=== PATIENT | female | born 1985 | race Caucasian/White ===

== ENCOUNTER → 2020-04-20 | Outpatient (CLI) | payer BC ==
--- NOTE | 2020-05-03 08:25 | MR ---
EXAMINATION TYPE: MR brain wo/w con DATE OF EXAM: 04/20/2020 COMPARISON: Prior outside MRI brain May 27, 2016 HISTORY: MS TECHNIQUE: Multiplanar, multisequence images of the brain and brainstem is performed without and with IV contras t, utilizing 6.5 mL intravenous Gadavist gadolinium contrast is administered intravenously. Demyelin ating disease protocol with additional Sagittal Flair sequence performed. FINDINGS: T2 Lesions Present : Yes Approximate Number of Lesions: Approximately 50 Locations Identified : Scattered without infratentorial involvement Size of Reference Lesion(s): 1. 12 x 6 x 12 mm on axial image 23 and sagittal image 15 left frontal lesion new from prior 2 12 x 8 x 9 mm right frontal lesion on axial image 20 and sagittal image 27 stable from prior. Enhancing Lesion(s) Present: Yes, roughly 6-8 enhancing lesions, largest 3 to 4 mm posterior high lef t frontal lobe axial image 22 T1 Hypointense Lesion(s) Present: Yes Change from Prior: Increased Diffusion weighted images demonstrate areas of T2 shine through corresponding to white matter lesions . There is no worrisome extra-axial fluid collection. The ventricular system and cisternal spaces a re normal in size and appearance. The brain volume is age appropriate. Midline structures demonstrate normal morphology. The craniocervical junction appears within normal limits. The dural venous sinuses appear patent. The visualized sinuses are clear and the globes are intact. IMPRESSION: Moderate to borderline severe white matter changes consistent with known multiple scleros is. Interval progression from outside 2017 MRI in the number of lesions. Enhancing or active lesions are noted.
== END | disposition home or self-care (01) ==
LOC: RADMRIMAIN 09:42
PROVIDERS: ATTEND Psychiatry & Neurology Neurology
DX: G93.9 Disorder of brain, unspecified (principal); G35 Multiple sclerosis
CPT/HCPCS: 70553; A9585

== ENCOUNTER → 2020-04-27 | Outpatient (CLI) | payer BC ==
--- NOTE | 2020-05-16 18:42 | MR ---
EXAMINATION TYPE: MR cspine/tspine wo/w con DATE OF EXAM: 04/27/2020 COMPARISON: Outside MRI cervical and thoracic spine July 13, 2014 HISTORY: MS TECHNIQUE: Multiplanar, multisequence imaging of cervical and thoracic spine are performed without an d with contrast, demyelinating disease protocol. Patient injected with 7 cc of gadolinium for the pardeep dy. FINDINGS: C-SPINE: FINDINGS: Sagittal images of the cervical spine show the craniocervical junction to remain within nor mal limits. The cervical and upper thoracic spinal cord remains normal in course, caliber, and signa l. Vertebral alignment is stable and satisfactory. The vertebral body and intravertebral disk heigh ts are normal. Small posterior disc herniation mildly effaces the anterior thecal sac at C5-C6 level on sagittal image 8. The bone marrow signal intensity is within normal limits. No suspicious postcont rast enhancement. Axial images shows a right paracentral disc protrusion mildly effacing the anterior thecal sac axial image 20.. Bilateral neural foramina. Other cervical levels within normal limits IMPRESSION: Small disc herniation C5-C6 level redemonstrated. No MRI evidence for demyelinating disea se involvement in the cervical spinal cord. No significant change from prior outside study. T-SPINE: Spinal cord shows we demonstrates normal caliber and course in the thoracic spine. Subtle lesion of increased signal T3 level sagittal image 8 inferiorly identified corresponding to slight increased si gnal left aspect axial image 12 appears less prominent prior study axial image 31. Small area of invo lvement right T5 level axial image 7 appears similar to prior study axial image 37. Last lesion infer ior T6 level left of midline axial image 3 redemonstrated. No definitive new T2 hyperintense lesions. No enhancing lesions are identified. Vertebral body heights and alignment remain satisfactory. Disc space heights maintained. No posterior disc herniations. Review of the axial images shows no significant spinal canal stenosis or neural foraminal narrowing a t any thoracic level. IMPRESSION: Stable 3 subtle lesions in the upper to midthoracic spine as detailed above. No new or e nhancing lesions are evident.
== END | disposition home or self-care (01) ==
LOC: RADMRIMAIN 09:18
PROVIDERS: ATTEND Psychiatry & Neurology Neurology
DX: M50.222 Other cervical disc displacement at C5-C6 level (principal); G95.9 Disease of spinal cord, unspecified; G35 Multiple sclerosis
CPT/HCPCS: 72156; 72157; A9585

== ENCOUNTER → 2021-10-11 | Outpatient (CLI) | payer BC ==
--- NOTE | 2021-10-12 01:54 | MR ---
EXAMINATION TYPE: MR brain wo/w con DATE OF EXAM: 10/11/2021 COMPARISON: 04/20/2020 HISTORY: MS CONTRAST: Standard multiplanar, multisequence MRI departmental protocol images were obtained without contrast a nd with 6 mL intravenous Gadavist gadolinium contrast. Diffusion images show no evidence of acute infarct. Ventricles are of normal size. There is no mass e ffect or midline shift. No sign of intracranial hemorrhage. There are multiple white matter high sign al foci around the lateral ventricles that measure up to 1 cm. Total number is approximately 20 and t here is also involvement of the corpus callosum. This is consistent with demyelinating disease. Sella turcica appears normal. No evidence of orbital mass. The brainstem is intact. Cerebellum is intact. The contrast images show no pathologic enhancement. Th ere is normal enhancement of the venous sinuses. IMPRESSION: Numerous white matter nonenhancing lesions consistent with demyelinating disease. No evidence of any significant new disease compared to old exam.
== END | disposition home or self-care (01) ==
LOC: RADMRIMAIN 18:56
PROVIDERS: ATTEND Psychiatry & Neurology Neurology
DX: R90.82 White matter disease, unspecified (principal); G35 Multiple sclerosis
CPT/HCPCS: 70553; A9585

== ENCOUNTER → 2024-01-12 | Outpatient (CLI) | payer BC ==
[2024-01-12 16:33] LABS: Chol/HDL Ratio 4.02 Ratio; LDL Cholesterol,Calculated 152.9 mg/dL (0.0-131.0)
--- NOTE | 2024-01-13 08:46 | MR ---
EXAMINATION TYPE: MR brain/cspine wo/w DATE OF EXAM: 01/12/2024 3:45 PM CLINICAL INDICATION: Female, 38 years old with history of G35 MULTIPLE SCLEROSIS; [facility], COMPARISON: 10/11/2021, 04/27/2022. TECHNIQUE: Multi planar, multi sequence imaging was performed through the brain including: T1, T2, Inversion rec overy, Diffusion weighted imaging, and gradient echo imaging. No gadolinium was given. Multi planar, multi sequence imaging was performed utilizing: T1-weighted, T2-weighted, and turbo inv ersion recovery imaging of the cervical spine. IV Contrast: cc 6 cc Gadavist FINDINGS: The pearson-white junctions, ventricular system, basal cisterns appear unremarkable. Scattered white m atter changes which are similar to prior where there is orthogonal morphology to the lateral ventricl es compatible with multiple sclerosis.. Midline structures show no abnormality. Diffusion-weighted im aging shows no evidence of restricted diffusion. The susceptibility weighted images do not reveal any evidence for micro-hemorrhage. The bone marrow signal is within normal limits. Paranasal sinuses and mastoid air cells: No significant paranasal sinus disease. Visualized orbits: Orbital contents are intact. Alignment: The cervical vertebral bodies have preserved heights. Alignment is within normal limits gi jesus manuel patient positioning. Bones: Bone signal is within normal limits. No abnormal bone marrow edema on inversion recovery seque nces. Cord: The spinal cord is unremarkable with regards to their signal intensity and morphology. No evide nce for abnormal postcontrast enhancement. Discs: Intervertebral disc signal is maintained. C2-C3: No significant disc pathology. The spinal canal is patent. No neural foraminal stenosis. C3-C4: No significant disc pathology. The spinal canal is patent. No neural foraminal stenosis. C4-C5: No significant disc pathology. The spinal canal is patent. No neural foraminal stenosis. C5-C6: No significant disc pathology. The spinal canal is patent. Bilateral facet and uncovertebral joint arthropathy are present with mild bilateral neural foraminal stenosis. C6-C7: No significant disc pathology. The spinal canal is patent. No neural foraminal stenosis. C7-T1: No significant disc pathology. The spinal canal is patent. No neural foraminal stenosis. Other: None. IMPRESSION: 1. No evidence for active demyelination. White matter changes compatible with multiple sclerosis mor phology without significant change from prior 2021. No abnormal postcontrast enhancement or restricte d diffusion. 2. No evidence for disc herniation or significant spinal canal stenosis. 3. Mild disc degeneration with associated osteoarthritic changes. 4. No evidence of intracranial mass or acute/subacute infarct.
--- NOTE | 2024-01-13 09:06 | MR ---
EXAMINATION TYPE: MR thoracic spine wo/w con DATE OF EXAM: 01/12/2024 3:46 PM CLINICAL INDICATION: Female, 38 years old with history of G35 MULTIPLE SCLEROSIS; COMPARISON: 04/27/2020. TECHNIQUE: Multi planar, multi sequence imaging was performed utilizing: T1-weighted, short-tau inver jacqui recovery and T2-weighted of the thoracic spine. IV Contrast: 6 cc Gadavist (none if empty) FINDINGS: Alignment: Alignment is within normal limits. Vertebral bodies have preserved heights. Spinal cord: Stable increased cord signal at the level of T3 and T5 series 06/19/2000 image 8 and image 12 the remainder of the cord is signal within normal limits. No evidence for abnormal postcontrast e nhancement. Discs: Intervertebral disc signal is maintained. No evidence of significant spinal canal or neural fo raminal stenosis. There is no evidence of extradural defects or central spinal canal narrowing at any thoracic vertebral body level Osseous structures: No abnormal bony edema on inversion recovery sequences. Multilevel osteophyte for mation and facet joint arthropathy. IMPRESSION: 1. No evidence for active demyelination. Stable cord signal at the level of T3 and T5. No new lesion s definitely visualized. 2. No significant spinal canal or neural foraminal stenosis.
== END | disposition home or self-care (01) ==
LOC: RADMRIMAIN 11:23
PROVIDERS: ATTEND Psychiatry & Neurology Neurology
DX: G35 Multiple sclerosis (principal); M47.812 Spondylosis without myelopathy or radiculopathy, cervical region; M50.30 Other cervical disc degeneration, unspecified cervical region; M99.71 Connective tissue and disc stenosis of intervertebral foramina of cervical region
CPT/HCPCS: 80061; 70553; 72156; 72157; A9585